=== PATIENT | male | born 1950 | race Caucasian/White ===

== ENCOUNTER 2021-02-12 16:15 | Emergency (ER) | payer MEDICARE, OTHER ==
[~2021-02-12] VITALS: Ht 180.3 cm; Wt 95.3 kg
[2021-02-12] MEDS ORDERED: MULT1CAP34 PO (16:25)
[2021-02-12] MEDS ORDERED: [UNRECOGNIZED DRUG - REMARK] PO (16:25)
--- NOTE | 2021-02-12 16:26 | NUR ---
Hands off report given to VIKI Wills
[2021-02-12] MEDS ORDERED: LIDOCAINE VISCUS 2% 15 ML UDC MM ONE (17:00)
[2021-02-12] MEDS ORDERED: MAG HYDROX/AL HYDROX/SIMETH 30 ML LIQUID UDC PO ONE (17:00)
[2021-02-12] MEDS ORDERED: FAMOTIDINE. 20 MG/2 ML VIAL IV ONE ×2 (17:00→17:26)
[2021-02-12] MEDS ORDERED: MAG HYDROX/AL HYDROX/SIMETH 30 ML LIQUID UDC ONE (17:25)
[2021-02-12] MEDS ORDERED: LIDOCAINE VISCUS 2% 15 ML UDC ONE (17:25)
[2021-02-12 17:30] LABS: HEMATOCRIT 44.7 % (36.7-47.1); MEAN CORPUSCULAR VOLUME 85.4 fL (73.0-96.2); PLATELET COUNT (AUTO) 210 K/uL (152-348)
[2021-02-12 17:35] LABS: CARBON DIOXIDE 27 mmol/L (21-32); CHLORIDE 101 mmol/L (98-107); CREATININE 0.9 mg/dL (0.6-1.3); GLUCOSE 122 mg/dL (74-106); UREA NITROGEN, BLOOD 11 mg/dL (7-18)
[2021-02-12 17:41] LABS: ALANINE AMINOTRANSFERASE 15 U/L (16-63); ALKALINE PHOSPHATASE 75 U/L (50-136); ASPARTATE AMINOTRANSFERASE 14 U/L (15-37); BILIRUBIN,TOTAL 0.4 mg/dL (0.2-1.0); LIPASE 85 U/L (73-393); TOTAL PROTEIN, SERUM 7.8 g/dL (6.4-8.2)
[2021-02-12] MEDS ORDERED: SWABABLE VALVE TRANSFER SET EA MC ONE (18:37)
[2021-02-12] MEDS ORDERED: IV NORMAL SALINE 250 ML IV ONE (18:37)
[2021-02-12] MEDS ORDERED: IOHEXOL 300MG/ML 100 ML INFUS..BTL ONE (18:37)
--- NOTE | 2021-02-12 18:45 | NUR ---
Pt back to ER from CT.
[2021-02-12 19:26] LABS: *BILIRUBIN,URIN NEGATIVE (NEGATIVE); *BLOOD, URINE 1+ (NEGATIVE); *CLARITY,URINE CLEAR (CLEAR); *COLOR,URINE LIGHT YELLOW (YELLOW); *KETONES,URINE NEGATIVE (NEGATIVE); *UROBILINOGEN,URINE 0.2 E.U./dl (NORMAL); LEUKOCYTE ESTERASE ,URINE NEGATIVE (NEGATIVE); NITRITE, URINE NEGATIVE (NEGATIVE); PH,URINE 6.5 (5.0-8.0); UGLUCOSE NEGATIVE (NEGATIVE)
[2021-02-12] MEDS ORDERED: HYDROMORPHONE 1 MG/1 ML DISP.SYRIN ONE (19:29)
[2021-02-12] MEDS ORDERED: ONDANSETRON 4 MG/2 ML VIAL ONE (19:29)
[2021-02-12] MEDS ORDERED: HYDROMORPHONE 1 MG/1 ML DISP.SYRIN IV ONE (19:30)
[2021-02-12] MEDS ORDERED: ONDANSETRON 4 MG/2 ML VIAL IV ONE (19:30)
[2021-02-12 19:32] LABS: BACTERIA,URINE NONE SEEN /HPF (NONE SEEN); SQUAMOUS EPITHELIAL CELL,UR NONE SEEN /HPF (NONE SEEN); WBC,URINE 0-3 /HPF (0-3)
[2021-02-12] MEDS ORDERED: ONDA4TAB5 PO (19:35)
[2021-02-12] MEDS ORDERED: HYDR-4209 PO (19:35)
--- NOTE | 2021-02-12 19:50 | NUR ---
Wrapping Machine Operator assumes care: Patient is AOx3, denies any pains@this time and for discharge to home by Dr Izquierdo. IV removed. Catheter intact and site benign. Pressure and 4x4 gauze applied to site. No bleeding noted. Patient discharged to home in stable condition with brisk steady gait. Written and verbal after care instructions given to patient and family-friend. Patient and family verbalized understanding and compliance of instructions. Stressed follow up with primary doctor and surgeon or return to ER for worsening s/s.
== END 2021-02-12 19:51 | disposition home or self-care (01) ==
LOC: ER 16:27
DX: K42.9 Umbilical hernia without obstruction or gangrene (principal); R31.29 Other microscopic hematuria; Z87.898 Personal history of other specified conditions
CPT/HCPCS: 36415; 74177; 80053; 81001; 83690; 84484; 85025; 96374; 96375; 99285; J1170; J2405; J3490; Q9967; 70030-TC; A4663; J7050